=== PATIENT | male | born 1955 | race Caucasian/White ===

== ENCOUNTER → 2017-10-01 | Outpatient (CLI) | payer MEDICARE, OTHER ==
[~2017-10-01] MED LIST: CLIN300C3 PO; CPR500T PO; HYDR1TAB8 OP; INDO25CA PO; NAPR-243 PO; ONDAN4ODT PO; TRM50T PO
--- NOTE | 2017-10-01 12:37 | Diagnostic Imaging Report ---
PROCEDURE: US Thyroid. TECHNIQUE: Multiple real-time grayscale images were obtained of the thyroid in various projections. INDICATION: Enlarged thyroid. COMPARISON: None. FINDINGS: Right lobe measures 5 cm x 2.9 cm x 2.4 cm and the left lobe measures 5 cm x 2.6 cm x 2.2 cm. It is fairly homogenous in appearance. There is a single 6 mm hypoechoic nodule in the inferior left thyroid lobe. IMPRESSION: 1. There is a single 6 mm hypoechoic benign-appearing nodule in the inferior left thyroid lobe. 2. No additional abnormality is seen. Dictated by: Dictated on workstation # [id number]
== END ==
LOC: RAD 09:04
PROVIDERS: ATTEND Nurse Practitioner Family
DX: E04.1 Nontoxic single thyroid nodule (principal)
CPT/HCPCS: 76536

== ENCOUNTER 2017-11-18 11:31 | Outpatient (RCR) | payer OTHER | END 2017-11-18 12:18 | disposition home or self-care (01) | PROVIDERS: ATTEND Family Medicine | DX: M54.2 Cervicalgia (principal); M54.5 Low back pain; M54.6 Pain in thoracic spine; M43.6 Torticollis ==

== ENCOUNTER → 2019-07-10 | Outpatient (CLI) | payer BC ==
[2019-07-10 11:50] LABS: BASOPHILS # (AUTO) 0.1 10^3/uL (0.0-0.1); BASOPHILS % (AUTO) 1 % (0-10); EOSINOPHILS # (AUTO) 0.2 10^3/uL (0.0-0.3); EOSINOPHILS % (AUTO) 2 % (0-10); HEMATOCRIT 42 % (40-54); HEMOGLOBIN 15.3 G/DL (13.3-17.7); LYMPHOCYTES # (AUTO) 1.5 X 10^3 (1.0-4.0); LYMPHOCYTES % (AUTO) 19 % (12-44); MEAN CORPUSCULAR HEMOGLOBIN 31 PG (25-34); MEAN CORPUSCULAR HGB CONC 37 G/DL (32-36); MEAN CORPUSCULAR VOLUME 84 FL (80-99); MEAN PLATELET VOLUME 9.3 FL (7.4-10.4); MONOCYTES # (AUTO) 0.6 X 10^3 (0.0-1.0); MONOCYTES % (AUTO) 7 % (0-12); NEUTROPHILS # (AUTO) 5.6 X 10^3 (1.8-7.8); NEUTROPHILS % (AUTO) 71 % (42-75); PLATELET COUNT 148 10^3/uL (130-400); RED CELL DISTRIBUTION WIDTH 13.5 % (10.0-14.5); WHITE BLOOD COUNT 7.9 10^3/uL (4.3-11.0)
[2019-07-10 12:15] LABS: ALANINE AMINOTRANSFERASE 42 U/L (0-55); ALBUMIN 4.3 GM/DL (3.2-4.5); ALKALINE PHOSPHATASE 66 U/L (40-136); BILIRUBIN,TOTAL 0.8 MG/DL (0.1-1.0); BUN/CREATININE RATIO 13; CALCIUM 9.1 MG/DL (8.5-10.1); CARBON DIOXIDE 24 MMOL/L (21-32); CHLORIDE 102 MMOL/L (98-107); CHOLESTEROL 180 MG/DL (< 200); CREATININE SERUM 1.04 MG/DL (0.60-1.30); GFR ESTIMATED > 60; GLUCOSE 240 MG/DL (70-105); HDL CHOLESTEROL 39 MG/DL (40-60); POTASSIUM 4.1 MMOL/L (3.6-5.0); SODIUM 136 MMOL/L (135-145); TOTAL PROTEIN 6.7 GM/DL (6.4-8.2); TRIGLYCERIDES 170 MG/DL (<150); VLDL CHOLESTEROL 34 MG/DL (5-40)
--- NOTE | 2019-07-10 12:27 | Diagnostic Imaging Report ---
INDICATION: Chronic back pain. COMPARISON: None. FINDINGS: Frontal, lateral, and open-mouth radiographic views of the cervical spine were obtained. Cervical spine is seen down to C6-C7 level on the lateral view. C7-T1 level is obscured by overlying soft tissue and osseous structures. There is straightening of the normal lordotic curvature of the cervical spine. There is no significant jayy- or retro-listhesis. There is no evidence of jumped facets. Vertebral body heights are maintained. There is no evidence of acute fracture. Note is made, however, of large calcified anterior bridging osteophyte formation extending from C2 at least to C6. Open-mouth view shows normal C1-C2 alignment. IMPRESSION: 1. No acute fracture or dislocation of the cervical spine. 2. Large calcified bridging anterior osteophyte. Dictated by: Dictated on workstation # [id number]
--- NOTE | 2019-07-10 13:40 | Diagnostic Imaging Report ---
INDICATION: Chronic back pain. COMPARISON: None. FINDINGS: Frontal and lateral radiographic views of the thoracic spine were obtained. Static alignment is preserved. There is no significant jayy or retrolisthesis. There is no evidence of jumped facets. Vertebral body heights are maintained. There is no evidence of acute fracture. There is diffuse anterior calcification, presumably of the anterior longitudinal ligament consistent with underlying ankylosing spondylitis. Intervertebral disc heights are fairly well maintained. Included portions of the lungs are clear. IMPRESSION: 1. No acute fracture or dislocation of the thoracic spine. 2. Diffuse calcification anteriorly, presumably involving the anterior longitudinal ligament and suggestive of underlying ankylosing spondylitis. Dictated by: Dictated on workstation # [id number]
== END ==
LOC: LAB 11:27
PROVIDERS: ATTEND Nurse Practitioner Family
DX: Z00.00 Encounter for general adult medical examination without abnormal findings (principal); Z12.5 Encounter for screening for malignant neoplasm of prostate; M54.9 Dorsalgia, unspecified
CPT/HCPCS: 36415; 72040; 72072; 80053; 80061; 83036; 84153; 84443; 85025

== ENCOUNTER → 2021-11-17 | Outpatient (CLI) | payer BC ==
--- NOTE | 2021-11-17 09:09 | Diagnostic Imaging Report ---
INDICATION: Right shoulder pain AP, oblique, and transscapular views of the right shoulder are obtained. No acute fracture or acute bony abnormality seen. There is prominent inferior spurring from the glenoid with glenohumeral joint space narrowing. There is moderate degenerative change of the AC joint. There is lateral acromial spurring. There is minimal distance between the acromion and humeral head raising the possibility of rotator cuff pathology. 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 No acute fracture or dislocation. Dictated by: Dictated on workstation # [id number]
== END ==
LOC: RAD 08:39
PROVIDERS: ATTEND Nurse Practitioner Family
DX: M19.011 Primary osteoarthritis, right shoulder (principal); M75.91 Shoulder lesion, unspecified, right shoulder; M19.031 Primary osteoarthritis, right wrist
CPT/HCPCS: 73030